=== PATIENT | female | born 1970 | race Caucasian/White ===

== ENCOUNTER 2022-03-04 14:09 | Inpatient (IN) | payer OTHER ==
[2022-03-04 14:41] VITALS: BMI 24.9
[2022-03-04] MEDS ORDERED: LACTATED RINGERS SOLUTION 1000 ML INFUS.BAG IV ONE (15:50)
[2022-03-04 16:20] LABS: INR 1.09 (0.83-1.09); PROTHROMBIN TIME (PATIENT) 12.5 SEC (9.7-13.0)
[2022-03-04 16:34] LABS: CALCIUM 9.3 mg/dL (8.5-10.1)
[2022-03-04 16:35] LABS: ALBUMIN 3.9 g/dl (3.4-5.0); BLOOD UREA NITROGEN 14.2 mg/dL (7-18)
[2022-03-04 16:38] LABS: CREATININE 0.7 mg/dL (0.55-1.3)
[2022-03-04 16:39] LABS: TOT PROT 7.3 g/dl (6.4-8.2)
[2022-03-04 16:40] LABS: BILIRUBIN,TOTAL 0.3 mg/dL (0.2-1)
[2022-03-04 16:49] LABS: BASO % 1.2 % (0-2.0); EOS % 8.8 % (0-4.5); HEMATOCRIT 42.2 % (32.4-45.2); HEMOGLOBIN 13.9 GM/dL (10.7-15.3); LYMPH % 30.6 % (8-40); MCH 29.3 pg (25.7-33.7); MCHC 33.1 g/dl (32.0-36.0); MEAN CELL VOLUME 88.6 fl (80-96); MEAN PLT VOLUME 8.8 fl (7.5-11.1); NEUT % 51.4 % (42.8-82.8); PLATELET COUNT 234 10^3/uL (134-434); RBC 4.76 M/mm3 (3.60-5.2); RDW 12.8 % (11.6-15.6); WHITE BLOOD COUNT 6.7 K/mm3 (4.0-10.0)
[2022-03-04] MEDS ORDERED: FAMOTIDINE 20 MG/50 ML IVPB 20 MG/50 ML MG IVPB ONE ×2 (17:26→17:41)
[2022-03-04] MEDS ORDERED: ONDANSETRON 4 MG/2 ML VIAL IVPUSH ONE (17:26)
[2022-03-04] MEDS ORDERED: ONDANSETRON 4 MG/2 ML VIAL ONE (17:41)
[2022-03-04 18:01] LABS: URINE APPEARANCE CLEAR; URINE BILIRUBIN NEGATIVE (NEGATIVE); URINE COLOR YELLOW; URINE GLUCOSE (UA) NEGATIVE (NEGATIVE); URINE KETONE NEGATIVE (NEGATIVE); URINE LEUK ESTERASE NEGATIVE (NEGATIVE); URINE NITRITE NEGATIVE (NEGATIVE); URINE PROTEIN NEGATIVE (NEGATIVE); URINE UROBILINOGEN 0.2 mg/dL (0.2-1.0)
[2022-03-04] MEDS ORDERED: BISACODYL 10 MG SUPP.RECT RC PRN (20:29)
[2022-03-04] MEDS ORDERED: ACETAMINOPHEN 325 MG TABLET (FP) PO PRN (20:29)
[2022-03-04] MEDS ORDERED: PEG 3350/NA SULF BICARB CL/KCL 4000 ML SOLN.RECON PO ONE (20:33)
[2022-03-04] MEDS: SODIUM CHLORIDE 1,000 ML IV SCH (21:13)
[2022-03-05] MEDS ORDERED: ACETAMINOPHEN 1000 MG/100 ML BAG IVPB PRN (04:46)
[2022-03-05] MEDS: ONDANSETRON 4 MG/2 ML VIAL IVPUSH PRN ×2 (04:47→16:51)
[2022-03-05] MEDS ORDERED: FLU VACC QS2022-23(6MOS UP)/PF 60 MCG/0.5 ML SYRINGE IM ONE (10:00)
[2022-03-05 10:12] LABS: HEMOGLOBIN 13.6 GM/dL (10.7-15.3); MCH 29.9 pg (25.7-33.7); MEAN CELL VOLUME 87.8 fl (80-96); MEAN PLT VOLUME 8.9 fl (7.5-11.1); PLATELET COUNT 224 10^3/uL (134-434); RBC 4.56 M/mm3 (3.60-5.2); RDW 12.8 % (11.6-15.6); WHITE BLOOD COUNT 9.2 K/mm3 (4.0-10.0)
[2022-03-05 10:41] LABS: CALCIUM 8.9 mg/dL (8.5-10.1)
[2022-03-05 10:42] LABS: BLOOD UREA NITROGEN 9.6 mg/dL (7-18)
[2022-03-05 10:45] LABS: CREATININE 0.6 mg/dL (0.55-1.3); PHOSPHOROUS 3.2 mg/dL (2.5-4.9)
[2022-03-05] MEDS: SODIUM CHLORIDE 1,000 ML IV SCH (11:09)
[2022-03-06] MEDS: ONDANSETRON 4 MG/2 ML VIAL IVPUSH PRN (10:11)
[2022-03-06] MEDS ORDERED: FLU VACC QS2022-23(6MOS UP)/PF 60 MCG/0.5 ML SYRINGE IM ONE (11:00)
[2022-03-06 11:33] LABS: HEMATOCRIT 39.5 % (32.4-45.2); HEMOGLOBIN 13.3 GM/dL (10.7-15.3); MCH 29.9 pg (25.7-33.7); MCHC 33.8 g/dl (32.0-36.0); MEAN CELL VOLUME 88.4 fl (80-96); MEAN PLT VOLUME 9.5 fl (7.5-11.1); PLATELET COUNT 214 10^3/uL (134-434); RBC 4.47 M/mm3 (3.60-5.2); RDW 13.1 % (11.6-15.6); RETICULOCYTES 1.04 % (0.5-1.5); WHITE BLOOD COUNT 6.3 K/mm3 (4.0-10.0)
[2022-03-06 12:16] LABS: PHOSPHOROUS 3.2 mg/dL (2.5-4.9)
[2022-03-06 12:18] LABS: BILIRUBIN,TOTAL 0.4 mg/dL (0.2-1); TOT PROT 6.3 g/dl (6.4-8.2)
[2022-03-06 12:19] LABS: ALBUMIN 3.2 g/dl (3.4-5.0); CALCIUM 8.7 mg/dL (8.5-10.1); MAGNESIUM 1.9 mg/dL (1.8-2.4)
[2022-03-06 12:20] LABS: BLOOD UREA NITROGEN 10.2 mg/dL (7-18); CREATININE 0.7 mg/dL (0.55-1.3)
[2022-03-07 10:09] LABS: HEMOGLOBIN 13.8 GM/dL (10.7-15.3); MCH 29.9 pg (25.7-33.7); MCHC 33.7 g/dl (32.0-36.0); MEAN CELL VOLUME 88.5 fl (80-96); MEAN PLT VOLUME 8.9 fl (7.5-11.1); PLATELET COUNT 232 10^3/uL (134-434); RBC 4.64 M/mm3 (3.60-5.2); RDW 12.9 % (11.6-15.6); WHITE BLOOD COUNT 5.5 K/mm3 (4.0-10.0)
[2022-03-07 10:46] LABS: ALBUMIN 3.5 g/dl (3.4-5.0); BLOOD UREA NITROGEN 10.4 mg/dL (7-18); CALCIUM 8.9 mg/dL (8.5-10.1); MAGNESIUM 1.9 mg/dL (1.8-2.4)
[2022-03-07 10:49] LABS: CREATININE 0.7 mg/dL (0.55-1.3); PHOSPHOROUS 3.6 mg/dL (2.5-4.9)
[2022-03-07 10:51] LABS: TOT PROT 6.6 g/dl (6.4-8.2)
[2022-03-07 10:55] LABS: BILIRUBIN,TOTAL 0.5 mg/dL (0.2-1)
[2022-03-07] MEDS: KCL 10 MEQ IVPB 10 MEQ/100 ML INFUS.BAG IVPB SCH ×3 (15:20→18:42)
[2022-03-07] MEDS ORDERED: BISACODYL 5 MG TABLET.DR (FP) PO ONE (16:00)
[2022-03-07] MEDS ORDERED: POLYETHYLENE GLYCOL 3350 255 GM BTL PO ONE (17:00)
[2022-03-07] MEDS ORDERED: POTASSIUM CHLORIDE TABS 20 MEQ TABLET.ER (FP) PO SCH (19:00)
[2022-03-07] MEDS: ONDANSETRON 4 MG/2 ML VIAL IVPUSH PRN (20:06)
[2022-03-08] MEDS ORDERED: SODIUM CHLORIDE 500 ML IV STA (07:21)
[2022-03-08 10:37] LABS: HEMATOCRIT 42.4 % (32.4-45.2); HEMOGLOBIN 14.6 GM/dL (10.7-15.3); MCH 30.1 pg (25.7-33.7); MCHC 34.4 g/dl (32.0-36.0); MEAN CELL VOLUME 87.4 fl (80-96); MEAN PLT VOLUME 8.7 fl (7.5-11.1); PLATELET COUNT 251 10^3/uL (134-434); RBC 4.85 M/mm3 (3.60-5.2); RDW 12.8 % (11.6-15.6)
[2022-03-08 11:52] LABS: CALCIUM 9.3 mg/dL (8.5-10.1)
[2022-03-08 11:53] LABS: ALBUMIN 3.9 g/dl (3.4-5.0); BLOOD UREA NITROGEN 12.7 mg/dL (7-18); MAGNESIUM 2.1 mg/dL (1.8-2.4)
[2022-03-08 11:56] LABS: BILIRUBIN,TOTAL 0.8 mg/dL (0.2-1); CREATININE 0.8 mg/dL (0.55-1.3); TOT PROT 7.4 g/dl (6.4-8.2)
[2022-03-08 13:22] VITALS: PULSE 60
[2022-03-08 15:06] VITALS: BP 116/76; RESP 16
[2022-03-08 15:07] VITALS: TEMP 98.1
== END 2022-03-08 17:25 | disposition home or self-care (01) | DRG 254 ==
LOC: JER 14:09 → JERBED 19:23 → INTOOBSV 19:23 → JERBED 03-05 00:27 → J5S 03-05 01:00 → OBSVTOIN 03-07 14:30
PROVIDERS: ADMIT Internal Medicine; ATTEND Internal Medicine
PROC: 0DBH8ZX Excision of Cecum, Via Natural or Artificial Opening Endoscopic, Diagnostic (ICD-10-PCS; principal; 2022-03-08 13:00)
DX: K64.8 Other hemorrhoids (principal); K55.21 Angiodysplasia of colon with hemorrhage; K62.5 Hemorrhage of anus and rectum; I10 Essential (primary) hypertension; R63.4 Abnormal weight loss; R63.0 Anorexia; R11.2 Nausea with vomiting, unspecified; K59.00 Constipation, unspecified
CPT/HCPCS: 0241U-QW; 36415; 71045-TC-FY; 74177-TC; 76700-TC; 80048; 80053; 81003; 82272; 82728; 83540; 83550; 83615; 83690; 83735; 84100; 84466; 84703; 85025; 85027; 85045; 85610; 86850; 86900; 86901; 88305-TC; 93005; 93010; 99285-25; G0378; Q9967

== ENCOUNTER 2023-01-21 21:29 | Emergency (ER) | payer OTHER ==
[2023-01-21 21:39] VITALS: BP 115/62; PULSE 67; RESP 18; TEMP 97.9; BMI 27.7
[2023-01-21] MEDS ORDERED: LIDOCAINE PATCH REMOVAL MC SCH (22:00)
[2023-01-21] MEDS ORDERED: LIDOCAINE 5% TOPICAL PATCH TP ONE (22:04)
[2023-01-21] MEDS ORDERED: KETOROLAC TROMETHAMINE 30 MG/1 ML VIAL IM ONE (22:04)
[2023-01-21] MEDS ORDERED: diazePAM 5 MG TABLET PO ONE (22:04)
[2023-01-21] MEDS ORDERED: diazePAM 5 MG TABLET ONE (22:15)
[2023-01-21] MEDS ORDERED: LIDOCAINE 4% PATCH TP ONE (22:15)
[2023-01-21] MEDS ORDERED: KETOROLAC TROMETHAMINE 30 MG/1 ML VIAL ONE (22:16)
== END 2023-01-22 01:11 | disposition home or self-care (01) ==
LOC: JER 21:29
PROC: 3E0233Z Introduction of Anti-inflammatory into Muscle, Percutaneous Approach (ICD-10-PCS; principal; 2023-01-21)
DX: S39.012A Strain of muscle, fascia and tendon of lower back, initial encounter (principal); M54.50 Low back pain, unspecified; X58.XXXA Exposure to other specified factors, initial encounter; Y93.9 Activity, unspecified; Y92.9 Unspecified place or not applicable
CPT/HCPCS: 72100-TC-FY; 99284-25